=== PATIENT | male | born 1960 | race African-American/Black ===

== ENCOUNTER 2019-08-13 09:50 | Inpatient (IN) | payer MEDICARE, BC ==
[~2019-08-13] VITALS: Ht 167.6 cm; Wt 117.9 kg
[2019-08-13 11:06] LABS: CHLORIDE 97 mEq/L (98-107)
[2019-08-13 11:09] LABS: ETHANOL BLOOD < 10 mg/dL
[2019-08-13 11:26] LABS: BASOPHILS % 0.6 % (0.0-2.0); EOSINOPHILS % 1.1 % (0.0-5.0); HEMATOCRIT. 27.9 % (42.0-52.0); LYMPHOCYTES % 9.1 % (20.0-50.0); MEAN CORPUSCULAR HEMOGLOBIN 29.2 pg (28.0-32.0); MEAN CORPUSCULAR VOLUME 90.5 fL (80.0-94.0); MEAN PLATELET VOLUME 9.1 fl (7.4-10.4); MONOCYTES % 6.9 % (2.0-8.0); NEUTROPHILS % 82.3 % (40.0-76.0); PLATELET 186 x1000/uL (130-400); RED BLOOD CELL COUNT 3.09 mill/uL (4.7-6.1); RED CELL DISTRIBUTION WIDTH 15.5 % (11.6-14.6)
[2019-08-13] MEDS ORDERED: CLONIDINE 0.2MG TABLET PO ONE (13:30)
[2019-08-13 13:32] LABS: PARTIAL THROMBOPLASTIN TIME 32.2 sec (23.4-31.0); PROTHROMBIN TIME 10.7 sec (9.6-11.0)
[2019-08-13] MEDS ORDERED: DIPHENHYDRAMINE 50MG/ML VIAL IV PRN (17:30)
[2019-08-13] MEDS ORDERED: ONDANSETRON HCL 4MG/2ML INJ IV PRN (17:30)
[2019-08-13] MEDS ORDERED: MAGNESIUM/ALUMINUM HYDROXIDE/SIMETHICONE 30ML UDC PO PRN (17:30)
[2019-08-13] MEDS ORDERED: DEXTROSE 50% WATER 50ML SYRINGE IV PRN (17:30)
[2019-08-13] MEDS ORDERED: CLONIDINE 0.1MG TABLET PO PRN (17:30)
[2019-08-13] MEDS ORDERED: GUAIFENESIN 200MG/10ML SUGAR FREE UDC PO PRN (17:30)
[2019-08-13] MEDS ORDERED: IPRATROPIUM/ALBUTEROL 0.5-3(2.5)MG/3ML NEB HHN PRN (17:30)
[2019-08-13] MEDS ORDERED: ALPRAZOLAM 0.5 MG TABLET PO PRN (17:30)
[2019-08-13] MEDS ORDERED: ACETAMINOPHEN 325MG TABLET PO PRN (17:30)
[2019-08-13] MEDS: INSULIN LISPRO 100 UNITS/ML SUBCUT SCH ×2 (18:20→21:00)
[2019-08-13 18:50] VITALS: BP 180/76
[2019-08-13] MEDS ORDERED: METO5TAB86 MT (18:57)
[2019-08-13] MEDS ORDERED: GABA-531 MT (18:57)
[2019-08-13] MEDS ORDERED: LOSA100T32 MT (18:57)
[2019-08-13] MEDS ORDERED: AMLO10TA80 MT (18:57)
[2019-08-13] MEDS ORDERED: CINA60TA3 PO (18:57)
[2019-08-13] MEDS ORDERED: PENT400T16 MT (18:57)
[2019-08-13] MEDS ORDERED: OMEP40CA34 MT (19:02)
[2019-08-13] MEDS ORDERED: SEVE800T25 PO (19:02)
[2019-08-13] MEDS ORDERED: CARV12.545 MT (19:02)
[2019-08-13] MEDS ORDERED: CLOP75TA33 PO (19:02)
[2019-08-13] MEDS ORDERED: MULT1TAB63 MT (19:02)
[2019-08-13] MEDS ORDERED: FENO134C MT (19:02)
[2019-08-13] MEDS ORDERED: DOXA1TAB2 MT (19:02)
[2019-08-13 20:00] VITALS: BP 188/84
[2019-08-13] MEDS ORDERED: DOXAZOSIN MESYLATE 2MG TABLET PO SCH (21:00)
[2019-08-13] MEDS: BLOOD SUGAR DIAGNOSTIC STRIP TEST SCH (21:00)
[2019-08-13] MEDS: OMEPRAZOLE 20MG CAPSULE EXTENDED RELEASE PO SCH (23:41)
[2019-08-13] MEDS: CARVEDILOL 12.5MG TABLET PO SCH (23:45)
[2019-08-13] MEDS: GABAPENTIN 300MG CAPSULE PO SCH (23:45)
[2019-08-13] MEDS: METOCLOPRAMIDE HCL 5MG TABLET PO SCH (23:45)
[2019-08-13] MEDS: SODIUM CHLORIDE 0.9% INJ 3ML FLUSH IVF SCH (23:46)
[2019-08-14] VITALS: BP 171/76
[2019-08-14 04:00] VITALS: BP 170/85
[2019-08-14 04:25] VITALS: BP 160/69
[2019-08-14] MEDS: SODIUM CHLORIDE 0.9% INJ 3ML FLUSH IVF SCH (06:00)
[2019-08-14 06:46] LABS: BASOPHILS % 0.7 % (0.0-2.0); EOSINOPHILS % 2.4 % (0.0-5.0); HEMATOCRIT. 25.9 % (42.0-52.0); HEMOGLOBIN. 8.4 g/dL (14.0-18.0); LYMPHOCYTES % 16.2 % (20.0-50.0); MEAN CORPUSCULAR HEMOGLOBIN 29.4 pg (28.0-32.0); MEAN CORPUSCULAR VOLUME 90.5 fL (80.0-94.0); MEAN PLATELET VOLUME 9.7 fl (7.4-10.4); MONOCYTES % 7.1 % (2.0-8.0); NEUTROPHILS % 73.6 % (40.0-76.0); PLATELET 184 x1000/uL (130-400); RED BLOOD CELL COUNT 2.86 mill/uL (4.7-6.1); RED CELL DISTRIBUTION WIDTH 15.5 % (11.6-14.6)
[2019-08-14] MEDS: BLOOD SUGAR DIAGNOSTIC STRIP TEST SCH ×2 (07:51→11:33)
[2019-08-14] MEDS: INSULIN LISPRO 100 UNITS/ML SUBCUT SCH ×2 (07:52→11:33)
[2019-08-14] MEDS: METOCLOPRAMIDE HCL 5MG TABLET PO SCH ×2 (07:56→12:04)
[2019-08-14] MEDS: SEVELAMER CARBONATE 800 MG TABLET PO SCH ×3 (07:56→16:53)
[2019-08-14] MEDS: OMEPRAZOLE 20MG CAPSULE EXTENDED RELEASE PO SCH (07:56)
[2019-08-14] MEDS: CARVEDILOL 12.5MG TABLET PO SCH (07:57)
[2019-08-14] MEDS: GABAPENTIN 300MG CAPSULE PO SCH (07:57)
[2019-08-14 08:00] VITALS: BP 145/47
[2019-08-14] MEDS ORDERED: CINACALCET HCL 60MG TABLET PO SCH (09:00)
[2019-08-14] MEDS ORDERED: AMLODIPINE 10MG TABLET PO SCH (09:00)
[2019-08-14] MEDS ORDERED: FENOFIBRATE NANOCRYSTALLIZED 145MG TABLET PO SCH (09:00)
[2019-08-14] MEDS ORDERED: CLOPIDOGREL 75MG TABLET PO SCH (09:00)
[2019-08-14] MEDS ORDERED: FOLIC ACID/VITAMIN B COMP W-C TABLET PO SCH (09:00)
[2019-08-14] MEDS ORDERED: LOSARTAN POTASSIUM 100 MG TABLET PO SCH (09:00)
[2019-08-14 12:00] VITALS: BP 141/63
[2019-08-14 16:39] VITALS: BP 152/69
[2019-08-15] MEDS ORDERED: FAMOTIDINE 20MG TABLET PO SCH (09:00)
== END 2019-08-14 17:30 | disposition home or self-care (01) | DRG 70 ==
LOC: ER 10:34 → 7WST 12:50 → ENRESERV 16:00
PROVIDERS: ADMIT Internal Medicine; ATTEND Internal Medicine
DX: G93.41 Metabolic encephalopathy (principal); N18.6 End stage renal disease; I12.0 Hypertensive chronic kidney disease with stage 5 chronic kidney disease or end stage renal disease; D63.1 Anemia in chronic kidney disease; E11.22 Type 2 diabetes mellitus with diabetic chronic kidney disease; E11.51 Type 2 diabetes mellitus with diabetic peripheral angiopathy without gangrene; F41.1 Generalized anxiety disorder; K21.9 Gastro-esophageal reflux disease without esophagitis; Z82.49 Family history of ischemic heart disease and other diseases of the circulatory system; Z83.3 Family history of diabetes mellitus; Z99.2 Dependence on renal dialysis; Z90.49 Acquired absence of other specified parts of digestive tract; Z79.899 Other long term (current) drug therapy; Z88.1 Allergy status to other antibiotic agents
CPT/HCPCS: 36415; 80048; 80320; 82962; 84100; 84484; 93005; 99285; J8597; G0480